=== PATIENT | male | born 1960 | race Native Hawaiian/Other Pacific Islander ===

== ENCOUNTER 2019-10-11 08:37 | Outpatient (CLI) | payer OTHER | END 2019-10-11 08:45 | disposition short-term general hospital (02) | LOC: AMB 08:37 | DX: R10.11 Right upper quadrant pain (principal) | CPT/HCPCS: A0425; A0427 ==

== ENCOUNTER 2019-10-11 08:47 | Emergency (ER) | payer OTHER ==
[~2019-10-11] VITALS: Ht 172.7 cm; Wt 84.8 kg
[2019-10-11 08:47] VITALS: TEMP 97.5
[2019-10-11 09:29] LABS: PLATELET COUNT 374 K/uL (142-355)
[2019-10-11 09:38] LABS: POTASSIUM 3.9 mmol/L (3.6-5.2); SODIUM 137 mmol/L (136-145)
[2019-10-11 13:26] VITALS: BP 162/79
== END 2019-10-11 13:26 | disposition home or self-care (01) ==
LOC: ED 08:47
PROVIDERS: Emergency Medicine
DX: R07.89 Other chest pain (principal); R10.11 Right upper quadrant pain
CPT/HCPCS: 80053; 82150; 82550; 82553; 83690; 84484; 85027; 93005; 96374; 99284; J1885; Q9963